=== PATIENT | female | born 1945 | race Caucasian/White ===

== ENCOUNTER 2021-08-31 12:56 | Emergency (ER) | payer MEDICARE, OTHER ==
[~2021-08-31] VITALS: Ht 154.9 cm; Wt 56.6 kg
--- NOTE | 2021-08-31 13:13 | ED Upper Extremity ---
General Chief Complaint: Upper Extremity Stated Complaint: LT WRIST INJ Source: patient Exam Limitations: no limitations History of Present Illness Date Seen by Provider: Aug 31, 2021 Time Seen by Provider: 13:07 Initial Comments Patient is a 76-year-old female who presents to the emergency department with a family member chief complaint left wrist pain. She was standing outside and stepped backwards tripping over a wooden block. She put her left arm behind her to catch her fall. Had immediate pain and discomfort in the left wrist. She states she did not hit her head or have loss of consciousness. No other complaints of illness or injury. She is chronically anticoagulated on Xarelto with a history of atrial fibrillation. All other review of systems reviewed and negative except as stated. Onset: just prior to arrival Severity: moderate Pain/Injury Location: left wrist Method of Injury: fell Modifying Factors: Improves With Cold Therapy, Improves With Immobilization; Worse With Movement Allergies and Home Medications Allergies Coded Allergies: No Known Drug Allergies (Unverified , 08/31/21) Patient Home Medication List Home Medication List Reviewed: Yes Tramadol HCl (Tramadol HCl) 50 Mg Tablet, 50 MG PO Q6H PRN for PAIN-MODERATE (5- 7) Prescribed by: GAB HERRON on 08/31/21 1343 Review of Systems Constitutional: see HPI EENTM: no symptoms reported Respiratory: no symptoms reported Cardiovascular: no symptoms reported Gastrointestinal: no symptoms reported Genitourinary: no symptoms reported Musculoskeletal: joint pain (left wrist) Skin: no symptoms reported All Other Systems Reviewed Negative Unless Noted: Yes Physical Exam Vital Signs Vital Signs - First Documented 08/31/21 13:00 Temp 36.5 Pulse 68 Resp 14 B/P (MAP) 150/67 (94) Pulse Ox 98 O2 Delivery Room Air Capillary Refill : Height, Weight, BMI Height: '" Weight: lbs. oz. kg; BMI Method: General Appearance: WD/WN, no apparent distress HEENT: PERRL/EOMI Neck: full range of motion, normal inspection Cardiovascular: regular rate, rhythm Respiratory: lungs clear, normal breath sounds, no respiratory distress, no accessory muscle use Shoulder: normal inspection, non-tender, no evidence of injury, normal ROM Elbow/Forearm: normal inspection, no evidence of injury, normal ROM, Left Wrist: Yes bone tenderness, Yes deformity, Yes limited ROM, Yes pain, Yes soft tissue tenderness, Yes swelling (mild) Hand: normal inspection, no evidence of injury, Left Neurologic/Tendon: normal sensation, normal motor functions, normal tendon functions Neurologic/Psychiatric: alert, normal mood/affect, oriented x 3 Skin: normal color, warm/dry Procedures/Interventions Splinting and Joint Reduction : Pre-Proc Neuro Vasc Exam: normal Post-Proc Neuro Vasc Exam: normal Hand-Made Type: orthoglass (SugarTong splint Left arm) Progress/Results/Core Measures Results/Orders My Orders Orders - GAB HERRON MD Wrist 3 View Left (08/31/21 13:14) Tramadol Tablet (Ultram Tablet) (08/31/21 13:45) Medications Given in ED Current Medications Medications Dose Ordered Sig/Joseph Route Start Time Stop Time Status Last Admin Dose Admin Tramadol HCl 50 mg ONCE ONCE PO 08/31/21 13:45 08/31/21 13:46 DC 08/31/21 13:43 50 MG Vital Signs/I&O 08/31/21 13:00 Temp 36.5 Pulse 68 Resp 14 B/P (MAP) 150/67 (94) Pulse Ox 98 O2 Delivery Room Air Diagnostic Imaging Diagonstic Imaging: Xray Comments left distal radius fracture - minimally displaced Ulnar styloid fracture - interpreted by me [facility] [place], [place] NAME: OLIVE ARAYA [facility] REC#: [id number] PT STATUS: REG ER : 1945 PHYSICIAN: GAB HERRON MD ADMIT DATE: 08/31/21/ER FS Draft Date of Exam:08/31/21 WRIST 3 VIEW LEFT INDICATION: Left wrist pain post fall. TECHNIQUE: Three views of the left wrist at 1:24 PM. CORRELATION STUDY: None. FINDINGS: There is a comminuted, impacted, and slightly dorsally displaced and angulated intra-articular distal radius fracture. Slight outward expansion of the main fracture fragments, particularly posteriorly. Nondisplaced fracture at the base of the ulnar styloid. Remaining osseous structures are otherwise intact. Soft tissue edema is present. IMPRESSION: 1. Mildly displaced, impacted, and angulated intra-articular distal left radius fracture. 2. Nondisplaced ulnar styloid fracture. Dictated on workstation # [id number] Dict: 08/31/21 1333 Trans: 08/31/21 1336 [id number] Interpreted by: CHERIE BECKETT DO Electronically signed by: Departure Impression Primary Impression: Closed fracture of left distal radius Qualified Codes: S52.532A - Colles' fracture of left radius, initial encounter for closed fracture Additional Impression: Fracture of ulnar styloid Qualified Codes: S52.615A - Nondisplaced fracture of left ulna styloid process, initial encounter for closed fracture Disposition: HOME, SELF-CARE Condition: Stable Departure-Patient Inst. Decision time for Depature: 13:42 Referrals: NO,LOCAL PHYSICIAN (PCP/Family) Primary Care Physician Patient Instructions: Radius Fracture (DC) Add. Discharge Instructions: You have a CLOSED LEFT DISTAL RADIUS FRACTURE and an ULNAR STYLOID FRACTURE We have put you in a temporary splint. This needs to stay on until you see an Orthopedic doctor for follow up. You can take Tylenol Extra strength - 2 tablets every 6 hours as well as the Tramadol, 1 every 6 hours as needed for pain. Always eat a little something with the Tramadol. Use Ice packs to the left wrist for the next 24-48 hours. Try and keep the left wrist elevated to reduce swelling and pain. Call your primary care doctor tomorrow for recommendation of an Orthopedic doctor for follow up. Return to the Emergency Department for any new, emergent or concerning symptoms. Scripts Tramadol HCl (Tramadol HCl) 50 Mg Tablet 50 MG PO Q6H PRN for PAIN-MODERATE (5-7), #20 TAB Prov: GAB HERRON MD 08/31/21 GAB HERRON MD Aug 31, 2021 13:13
--- NOTE | 2021-08-31 13:37 | Diagnostic Imaging Report ---
INDICATION: Left wrist pain post fall. TECHNIQUE: Three views of the left wrist at 1:24 PM. CORRELATION STUDY: None. FINDINGS: There is a comminuted, impacted, and slightly dorsally displaced and angulated intra-articular distal radius fracture. Slight outward expansion of the main fracture fragments, particularly posteriorly. Nondisplaced fracture at the base of the ulnar styloid. Remaining osseous structures are otherwise intact. Soft tissue edema is present. IMPRESSION: 1. Mildly displaced, impacted, and angulated intra-articular distal left radius fracture. 2. Nondisplaced ulnar styloid fracture. Dictated by: Dictated on workstation # [id number]
[2021-08-31] MEDS ORDERED: TRM50T PO (13:43)
[2021-08-31 13:51] VITALS: BP 150/67
== END 2021-08-31 13:50 | disposition home or self-care (01) ==
LOC: ER FS 12:58
DX: S52.532A Colles' fracture of left radius, initial encounter for closed fracture (principal); S52.615A Nondisplaced fracture of left ulna styloid process, initial encounter for closed fracture; W01.198A Fall on same level from slipping, tripping and stumbling with subsequent striking against other object, initial encounter
CPT/HCPCS: 29105; 73110